=== PATIENT | male | born 1935 | race Caucasian/White ===

== ENCOUNTER 2023-02-25 10:47 | Emergency (ER) | payer OTHER ==
[~2023-02-25] VITALS: Ht 182.9 cm; Wt 84.4 kg
--- NOTE | 2023-02-25 10:59 | NUR ---
Pt ambulated with walker into ER and room 4A. Pt states he is here today because he will be getting admitted to a SNF and they requested he get a COVID test and medical clearance. at bedside for MSE.
[2023-02-25] MEDS ORDERED: ROSU10TA29 PO (11:12)
[2023-02-25] MEDS ORDERED: METO-356 PO (11:12)
[2023-02-25] MEDS ORDERED: QUET25TA36 PO (11:12)
--- NOTE | 2023-02-25 11:39 | NUR ---
pt to xray dept for xrays
[2023-02-25 12:38] VITALS: BP 125/65
--- NOTE | 2023-02-25 12:38 | NUR ---
Patient discharged to home in stable condition. Written and verbal after care instructions given. Patient verbalizes understanding of instructions. Stressed follow up or return to ER for worsening s/s.
== END 2023-02-25 12:39 | disposition home or self-care (01) ==
LOC: ER 10:47
DX: G89.29 Other chronic pain (principal); M54.2 Cervicalgia; M54.50 Low back pain, unspecified; Z79.899 Other long term (current) drug therapy; Z20.822 Contact with and (suspected) exposure to COVID-19
CPT/HCPCS: 72050; 72110; A4663